=== PATIENT | male | born 1945 | race Caucasian/White ===

== ENCOUNTER 2018-01-09 09:24 | Emergency (ER) | payer OTHER ==
--- NOTE | 2018-01-09 09:55 | EDPHY ---
H & P Time Seen by Provider: 01/09/18 09:38 HPI/ROS: CHIEF COMPLAINT: Left shoulder injury HISTORY OF PRESENT ILLNESS: 72-year-old male presents to the emergency department with pain in his left shoulder. The patient is visiting from [place] and states that he rolled out of bed this morning. He complains of isolated pain to the left shoulder. He did not hit his head or lose consciousness. Denies neck or back pain. Denies chest pain or difficulty breathing. No history of seizure activity. No history of confusion. He complains of isolated pain in the left shoulder specially with range of motion. He is right- hand dominant. He denies paresthesias in his upper or lower extremities. Denies pain in his left elbow or left wrist. Denies symptoms in the right upper extremity or lower extremities bilaterally. REVIEW OF SYSTEMS: Constitutional: No fever, no chills. Eyes: No double or blurry vision. ENT: No sore throat. Respiratory: No cough, no shortness of breath. Cardiac: No chest pain. Gastrointestinal: No abdominal pain, vomiting or diarrhea. Genitourinary: No dysuria. Musculoskeletal: No neck or back pain. Skin: No rashes. Neurological: No headache. Past Medical/Surgical History: Dyslipidemia Social History: , visiting from [place] Smoking Status: Never smoked Physical Exam: General Appearance: Alert, no distress. No visible signs of trauma to his head. He is mentating normally and answering questions appropriately. and daughter are at bedside. Eyes: Pupils equal and round. Extraocular motions are all intact. ENT: Mouth: Mucous membranes moist. Respiratory: No wheezing, rhonchi, or rales, lungs are clear to auscultation. Cardiovascular: Regular rate and rhythm. Gastrointestinal: Abdomen is soft and nontender, no masses, no rebound or guarding, bowel sounds normal. Neurological: Alert and oriented x 3, cranial nerves II through XII grossly intact Skin: Warm and dry, no rashes. Musculoskeletal: Nontender to palpate along the cervical, thoracic or lumbar spine. Neck is supple. Extremities: Patient has reproducible pain with palpation to the left anterior aspect of the shoulder over the AC joint. No palpable crepitus. He has pain especially with internal rotation and flexion of the left shoulder. Full range of motion of the left elbow and left wrist. Full range of motion of the right upper extremity and lower extremities bilaterally. Normal gait. Psychiatric: Patient is oriented X 3, there is no agitation. Constitutional: Initial Vital Signs Temperature (C) 36.9 C 01/09/18 09:27 Heart Rate 64 01/09/18 09:27 Respiratory Rate 18 01/09/18 09:27 Blood Pressure 135/88 H 01/09/18 09:27 O2 Sat (%) 95 01/09/18 09:27 O2 Delivery Mode Room Air Allergies/Adverse Reactions: Sulfa (Sulfonamide Antibiotics) Allergy (Verified 01/09/18 09:31) Home Medications: Medication Instructions Recorded Aspirin [Aspirin 81mg (*)] 81 mg PO DAILY 01/09/18 Atorvastatin Calcium 20 mg PO 01/09/18 Medical Decision Making - Diagnostics Imaging Results: Imaging Impressions Shoulder X-Ray 01/09/18 09:49 Impression: Negative for acute injury. Imaging: I viewed and interpreted images myself Procedures: The patient was placed in a sling and examined post application in good placement with normal [employer]. ED Course/Re-evaluation: 72-year-old male presents to the emergency department with left shoulder pain after he fell out of bed. X-rays reveal degenerative changes without evidence of obvious fracture. He was placed in a sling and given orthopedic referral. Differential Diagnosis: Including but not limited to fracture, dislocation, contusion, sprain Departure - Departure Disposition: Home, Routine, Self-Care Clinical Impression: Contusion of left shoulder Qualifiers: Encounter type: initial encounter Qualified Code(s): S40.012A - Contusion of left shoulder, initial encounter Sprain of left shoulder Qualifiers: Encounter type: initial encounter Shoulder sprain type: unspecified sprain Qualified Code(s): S43.402A - Unspecified sprain of left shoulder joint, initial encounter Condition: Good Instructions: Contusion in Adults (ED), Shoulder Sprain (ED) Additional Instructions: Sling for comfort and support. Ibuprofen 600mg every 8 hours for pain as directed Follow up with orthopedic surgeon glue bone crusher or with your doctor in [place] next week to recheck. Referrals: Dioni Montalvo MD [Medical Doctor] - 5-7 days, call for appt. (orthopedic surgeon glue bone crusher )
[2018-01-09 10:59] VITALS: BP 135/80
== END 2018-01-09 11:05 | disposition home or self-care (01) ==
DX: S40.012A Contusion of left shoulder, initial encounter (principal); S43.402A Unspecified sprain of left shoulder joint, initial encounter; Z79.82 Long term (current) use of aspirin; X50.9XXA Other and unspecified overexertion or strenuous movements or postures, initial encounter